=== PATIENT | male | born 1970 | race Caucasian/White ===

== ENCOUNTER 2024-12-17 23:10 | Emergency (ER) | payer MEDICARE, MEDICAID ==
[~2024-12-17] VITALS: Ht 185.4 cm; Wt 77.7 kg
[~2024-12-17 23:10] MED LIST: DIPH-1243 PO; DIVA-112 PO; EMPA10TA3 PO; FLUP10TA28 PO; LITH300C3 PO; METF-1211 PO; TRIH2TAB3 PO
[2024-12-17 23:17] VITALS: BP 138/91; PULSE 102; RESP 20; TEMP 98.8; O2SAT 95
[2024-12-17 23:58] LABS: COVID AG,FIA SOURCE NASAL SWAB
[2024-12-18 00:14] LABS: PLATELET COUNT (AUTO) 240 K/uL (150-450); RED BLOOD CELL COUNT(AUTO) 5.01 MIL/uL (4.50-5.90); RED CELL DISTRIBUTION WIDTH 14.0 % (11.5-14.5); WHITE BLOOD COUNT (AUTO) 6.7 K/uL (4.5-11.0)
[2024-12-18 00:21] LABS: CALCIUM, TOTAL 9.4 mg/dL (8.8-10.5); CREATININE 0.99 mg/dL (0.60-1.30); GLOMERULAR FILTR. RATE CALC > 60 mL/min (>60); GLUCOSE,RANDOM 159 mg/dL (70-110); SODIUM SERUM 142 mmol/L (136-145); UREA NITROGEN, BLOOD 20 mg/dL (7-18)
[2024-12-18 00:36] LABS: SARS-COV2 (COVID) ANTIGEN,FIA Negative (Negative)
== END 2024-12-18 03:27 | disposition home or self-care (01) ==
LOC: EMS 23:32
DX: F32.A Depression, unspecified (principal); F20.9 Schizophrenia, unspecified; R45.851 Suicidal ideations; Z79.899 Other long term (current) drug therapy; Z20.822 Contact with and (suspected) exposure to COVID-19
CPT/HCPCS: 99284; 87426; 80048; 85025; 36415; G0480

== ENCOUNTER 2024-12-19 12:09 | Inpatient (IN) | payer MEDICARE, MEDICAID ==
[~2024-12-19] VITALS: Ht 185.4 cm; Wt 81.6 kg
[2024-12-19] MEDS ORDERED: ZOLPIDEM TARTRATE 10 MG TABLET PO PRN (13:00)
[2024-12-19] MEDS ORDERED: LOPERAMIDE HCL 2 MG CAPSULE PO PRN (19:00)
[2024-12-19] MEDS ORDERED: IBUPROFEN 400 MG TABLET PO PRN (19:00)
[2024-12-19] MEDS ORDERED: ONDANSETRON 4 MG TABLET PO PRN (19:00)
[2024-12-19] MEDS ORDERED: DOCUSATE SODIUM 100 MG CAPSULE PO PRN (19:00)
[2024-12-19] MEDS ORDERED: GuaiFENesin/D-METHORPHAN [SUGAR-FREE] 200-20MG/10 ML SYRUP UDCUP PO PRN (19:00)
[2024-12-19] MEDS ORDERED: ACETAMINOPHEN 325 MG TABLET PO PRN (19:00)
[2024-12-19] MEDS ORDERED: ALBUTEROL SULFATE HFA 90 MCG/PUFF 8 GM INHALER IH PRN (19:00)
[2024-12-19] MEDS ORDERED: PETROLATUM,WHITE 28 GM JELLY TP PRN (19:00)
[2024-12-19] MEDS ORDERED: MAGNESIUM HYDROXIDE SUSPENSION 30 ML UDCUP PO PRN (19:00)
[2024-12-19] MEDS ORDERED: MAG HYDROX/ALUMINUM HYD/SIMETH ES 30 ML SUSPENSION UDCUP PO PRN (19:00)
[2024-12-19 19:04] VITALS: RESP 15
[2024-12-20 08:04] VITALS: RESP 16
[2024-12-20] MEDS: EMPAGLIFLOZIN 10 MG TABLET PO SCH (09:10)
[2024-12-20] MEDS: TRIHEXYPHENIDYL HCL 2 MG TABLET PO SCH (17:16)
[2024-12-20 20:14] VITALS: BP 130/87; PULSE 82; RESP 16; TEMP 97.4; O2SAT 98
[2024-12-21 08:05] VITALS: BP 107/60; PULSE 65; RESP 15; TEMP 97.6; O2SAT 100
[2024-12-21 20:56] VITALS: RESP 15
[2024-12-22 08:23] VITALS: BP 113/79; PULSE 93; RESP 18; TEMP 97.8; O2SAT 96
[2024-12-22] MEDS: NICOTINE 14 MG/24 HOUR PATCH TD PRN (14:33)
[2024-12-22 20:20] VITALS: BP 120/80; PULSE 70; RESP 17; TEMP 97.5; O2SAT 98
[2024-12-23 08:19] VITALS: BP 110/74; PULSE 87; RESP 18; TEMP 97.8; O2SAT 95
[2024-12-23 17:05] LABS: GLUCOMETER DEV NAME(LOC) BV3N.2; GLUCOSE,POINT OF CARE 115 MG/DL (70-110)
[2024-12-23 20:30] VITALS: RESP 18
[2024-12-24 08:16] VITALS: BP 109/73; PULSE 93; RESP 18; TEMP 97.8; O2SAT 100
[2024-12-24] MEDS ORDERED: LORazepam 2 MG/ML VIAL ONE (18:48)
[2024-12-24] MEDS: LORazepam 2 MG/ML VIAL IM ONE ×2 (19:24→19:47)
[2024-12-24 20:19] VITALS: RESP 18
[2024-12-25 08:12] VITALS: RESP 17
[2024-12-25 20:11] VITALS: RESP 19
[2024-12-26] MEDS ORDERED: LORazepam 2 MG/ML VIAL ONE (04:06)
[2024-12-26] MEDS: LORazepam 2 MG/ML VIAL IM ONE (04:16)
[2024-12-26 08:07] VITALS: RESP 17
[2024-12-26 20:15] VITALS: RESP 17
[2024-12-27 08:57] VITALS: RESP 18
[2024-12-27] MEDS ORDERED: LORazepam 2 MG/ML VIAL ONE (16:49)
[2024-12-27] MEDS: LORazepam 2 MG/ML VIAL IM ONE (17:10)
[2024-12-27 20:20] VITALS: RESP 18
[2024-12-28] MEDS ORDERED: FLUO-418 PO (07:41)
[2024-12-28] MEDS ORDERED: FLUP10TA28 PO (07:41)
== END 2024-12-28 12:50 | disposition home or self-care (01) | DRG 885 ==
LOC: B3A 14:15
PROVIDERS: ADMIT Psychiatry & Neurology Child & Adolescent Psychiatry; ATTEND Psychiatry & Neurology Child & Adolescent Psychiatry
PROC: GZ56ZZZ Individual Psychotherapy, Supportive (ICD-10-PCS; principal; 2024-12-20)
DX: F20.3 Undifferentiated schizophrenia (principal); E11.9 Type 2 diabetes mellitus without complications; E78.5 Hyperlipidemia, unspecified; E66.9 Obesity, unspecified; Z68.23 Body mass index [BMI] 23.0-23.9, adult
CPT/HCPCS: 82962; J1200; J1630; J2060